=== PATIENT | female | born 1935 | race Caucasian/White ===

== ENCOUNTER 2017-01-23 11:16 | Inpatient (IN) | payer MEDICARE, OTHER ==
--- NOTE | ~2017-01-23 | DS ---
Discharge Summary [place] [address] [place]. [address] NAME: CHRIS MINA : 34 STATUS : DIS IN PAT#: [id number] AGE: 81 ADM/REG DATE : 01/23/17 MR#: [id number] REPORT SERV DATE: 01/27/17 DICTATED BY: WISAM ANGEL DATE: 01/26/17 REPORT STATUS : Draft TRANSCRIBED BY: MODL DATE: 01/26/17 ADMISSION DATE: 01/23/2017 DISCHARGE DATE: 01/26/2017 DISCHARGE DIAGNOSES: 1. Acute systolic heart failure. 2. Acute hypoxic respiratory failure. 3. Rheumatoid arthritis. 4. Chronic kidney disease. 5. Paroxysmal atrial fibrillation. 6. Anemia, on Epogen followed by Dr. Nazario. 7. Hypertension. 8. Non-ST elevation myocardial infarction secondary to hypertension and acute on chronic heart failure. CONSULTATIONS: Dr. Bowman. DISCHARGE MEDICATIONS: Allopurinol 100 mg one tab p.o. b.i.d.; aspirin 325 mg one tab p.o. daily; atorvastatin 80 mg one tab p.o. at bedtime; Coreg 25 mg one tab p.o. b.i.d.; Plavix 75 mg one tab p.o. daily; iron sulfate 325 mg p.o. b.i.d.; folic acid 1 mg p.o. daily; Imdur 30 mg one tab p.o. daily; methotrexate 10 mg one tab p.o. on Wednesdays; Xarelto 15 mg p.o. at bedtime; Entresto one tablet p.o. b.i.d.; hydralazine 25 mg one tab p.o. q.8 hours; prednisone 10 mg b.i.d. up until 02/03/2017, then change back to 10 daily; Tylenol p.r.n. [id number]; Artificial Tears; meclizine 25 mg one tab p.o. q.6 hours p.r.n. vertigo; and Lasix 40 mg one tab p.o. Tuesday. DISCHARGE DISPOSITION: Discharged with Home Health. Follow up with Dr. Bowman and Dr. Lozoya and Home Health for heart failure. Additionally, follow up with Dr. Nazario in one week for CBC and Epogen. PERTINENT LABORATORY DATA: BNP greater than 5000 x 2, troponin 0.23 down to 0.08 at time of discharge. CBC had hematocrit at time of discharge 25.7, on arrival 28.1. HOSPITAL COURSE: Please see H and P for complete details. HISTORY OF PRESENT ILLNESS: Briefly, Ms. Mina is a very pleasant 81-year-old female with past medical history of CKD, paroxysmal atrial fibrillation on rivaroxaban, chronic anemia followed by Dr. Nazario, requiring Epogen replacement, additionally with RA on methotrexate and prednisone who comes in after having acute hypoxic respiratory failure, noted to be in acute systolic heart failure with BNP greater than 5000. The patient was diuresed with good results, optimized on medications including blood pressure medication with addition of hydralazine. Continue aspirin, statin beta becka, currently while inpatient and Entresto. Upon monitoring, the patient did have mild decrease in H and H with hemoglobin as low as 7. Repeat was 7.5. This finding was discussed with Dr. Nazario, the patient's oncologist which appears consistent with the patient's trend as the patient's last Epogen dose was approximately four weeks ago as the patient has been slowly spacing out Discharge Summary [address] [address] NAME: CHRIS MINA : 34 STATUS : DIS IN PAT#: [id number] AGE: 81 ADM/REG DATE : 01/23/17 MR#: [id number] REPORT SERV DATE: 01/27/17 DICTATED BY: WISAM ANGEL DATE: 01/26/17 REPORT STATUS : Draft TRANSCRIBED BY: MODL DATE: 01/26/17 treatments. No transfusions are recommended, and the patient already has followup with Dr. Nazario on 02/04/2017 for re-evaluation and likely Epogen administration as the patient has had good clinical response for this in clinic. These findings were also discussed with patient and son who are at bedside. The patient was initially monitored until noon for blood pressure response to hydralazine to monitor for any symptomatic orthostasis. The patient tolerated medication changes well and will have followups as noted with PCP, Dr. Bowman, and Dr. Nazario. Discharge planning and discussion with the patient, education, and family coordination of care; greater than 30 minutes Thank you for allowing us to assist in the care of this patient. MARYSE/MODL Wisam Angel MD / [id number] CC: MD Jeronimo Orozco III, M.D. Alexander Stratienko, M.D.
--- NOTE | ~2017-01-23 | HP ---
History And Physical [place] [id number] [facility] [place]. [address] NAME: CHRIS CALZADA : 34 STATUS : ADM IN PAT#: [id number] AGE: 81 ADM/REG DATE : 01/23/17 MR#: [id number] REPORT SERV DATE: 01/23/17 DICTATED BY: LISA GARZA DATE: 01/23/17 REPORT STATUS : Draft TRANSCRIBED BY: MODL DATE: 01/23/17 DATE OF ADMISSION: 01/23/2017 REASON FOR ADMISSION: Acute on chronic systolic heart failure exacerbation. CHIEF COMPLAINT: "I started feeling short of breath for the past two days and some chest pressure." HISTORY OF PRESENT ILLNESS: An 81-year-old white female with a history of ischemic cardiomyopathy with an EF of 32% based on a stress test in 2014 and chronic systolic heart failure closely monitored by Dr. Bowman, last seen approximately a month ago. Dr. Bowman had started her on Entresto. She takes Lasix 40 mg every other day. She presented to [facility] ER with complaints of shortness of breath. Denies any cough, fever, chills, nausea, vomiting, or diaphoresis. She complains of shortness of breath for the past 2 days at rest and markedly worse with exertion. She states that she has some orthopnea but it could be due to breathing issues along with back pain issues. She does not wear oxygen at home. She noted about a 2-pound weight gain. She has noticed that she has been increasing her fluid intake but her salt intake remains the same. She has not increased her Lasix dosage as a result of her fluid intake. She says that she has been having some tight chest pressure for the past several days. She was also having an arthritis flare for which her PCP had doubled up on her prednisone to 20 mg once a day. She has been on that for a 5/14 day course. She typically takes 10 mg of prednisone on an as-needed basis. She had been on methotrexate for over 10 years. She was given a dose of Lasix [address] Osborne in the ER and she is feeling better. REVIEW OF SYSTEMS: As per HPI. Otherwise, 10-point systems reviewed and are negative. PAST MEDICAL HISTORY: Coronary artery disease, ischemic cardiomyopathy, chronic systolic heart failure with an EF of around 32% in 2015; biventricular pacemaker; CKD stage 3; PAF on Xarelto; rheumatoid arthritis on chronic methotrexate; and peripheral vascular disease. She has coronary artery disease status post CABG and a left subclavian vein thrombosis. SURGICAL HISTORY: She had a laparoscopic cholecystectomy by Dr. Sommer. SOCIAL HISTORY: She lives at home by herself. She has several children, very good social support. Denies any smoking, drinking, or illegal drug use. FAMILY HISTORY: Mother had coronary artery disease. ALLERGIES: SULFA CAUSING A RASH. MEDICATIONS: Include Tylenol p.r.n.; allopurinol 100 mg twice a day; Artificial Tears; aspirin 325 mg once a day; Lipitor 80 mg at bedtime; Coreg 25 mg twice a day; Plavix 75 mg daily; ferrous sulfate 325 mg twice a day; folic acid 1 mg daily; Lasix 40 mg Tuesday, Tuesday, Tuesday; isosorbide 30 mg daily; meclizine p.r.n.; methotrexate 10 mg every History And Physical [address] [address] NAME: CHRIS CALZADA : 34 STATUS : ADM IN PAT#: [id number] AGE: 81 ADM/REG DATE : 01/23/17 MR#: [id number] REPORT SERV DATE: 01/23/17 DICTATED BY: LISA GARZA DATE: 01/23/17 REPORT STATUS : Draft TRANSCRIBED BY: ALEXANDRIA DATE: 01/23/17Wednesdays; prednisone 20 mg once a day for the next 9 more days, otherwise 10 mg p.r.n.; Xarelto 50 mg at bedtime; and Entresto 1 tab twice a day. PHYSICAL EXAMINATION: VITAL SIGNS: Blood pressure is 161/93, temperature is 97.9, pulse is 81, respirations 19, and saturating 88% on room air. GENERAL: She is no acute distress, very pleasant, accompanied by several family members. HEENT: Normocephalic and atraumatic head. Extraocular muscles intact. Oropharynx is clear. NECK: Supple. Unable to appreciate any JVD. CARDIAC: Irregular rhythm. No murmurs, rubs, or gallops. PULMONARY: Diminished breath sounds with diffuse crackles throughout all lung che. ABDOMEN: Soft, nontender, and nondistended. Positive bowel sounds. EXTREMITIES: Show no clubbing, cyanosis, or edema. SKIN: Warm and dry. PSYCHIATRIC: The patient is cooperative. Mood is appropriate. NEUROLOGIC: No focal deficits. LABORATORY DATA: Show a white blood cell count of 14.4, hemoglobin 9.2, and platelet of 175. INR 2.2. BUN 33, creatinine 1.11. Troponin 0.22. BNP of greater than 5000. Chest x-ray shows bilateral venous congestion. EKG shows a V-paced rhythm. IMPRESSION: 1. Acute hypoxic respiratory failure. 2. Acute on chronic systolic congestive heart failure exacerbation. 3. Chest pressure. 4. Severe rheumatoid arthritis on methotrexate. 5. Ischemic cardiomyopathy with an ejection fraction of 32% on stress test in 2014. 6. Biventricular ICD. 7. CKD stage 3. 8. PAF on Xarelto. 9. Leukocytosis secondary to prednisone. PLAN: Plan is to continue Lasix diuresis. Obtain an echocardiogram to be read by Dr. Bowman. Obtain a CT scan of the chest without contrast to rule out methotrexate-induced pulmonary fibrosis. Obtain 1 more set of troponin 6 hours after the 1st set. Resume her home medications of her oral Lasix. The patient has an overall good prognosis. Anticipate discharging home in two to three days. PONCHO/AL[place]RI[place] Lisa Garza MD / [id number] History And Physical [address] [address] NAME: CHRIS CALZADA : 34 STATUS : ADM IN [facility]#: [id number] AGE: 81 ADM/REG DATE : 01/23/17 MR#: [id number] REPORT SERV DATE: 01/23/17 DICTATED BY: LISA GARZA DATE: 01/23/17 REPORT STATUS : Draft TRANSCRIBED BY: ALEXANDRIA DATE: 01/23/17 CC: Swapnil Alvarez M.D. Alexander Stratienko, M.D.
--- NOTE | ~2017-01-23 | CN ---
Consultation Report [facility] [address] [place]. [address] NAME: CHRIS CALZADA : 34 STATUS : ADM IN PAT#: [id number] AGE: 81 ADM/REG DATE : 01/23/17 MR#: [id number] REPORT SERV DATE: 01/24/17 DICTATED BY: ZAINAB JIMENEZ DATE: 01/24/17 REPORT STATUS : Draft TRANSCRIBED BY: ALEXANDRIA DATE: 01/24/17 CONSULTATION DATE OF CONSULTATION: CHIEF COMPLAINT: Worsening shortness of breath. HISTORY OF PRESENT ILLNESS: 81-year-old woman, known to me from long history of prior care, has long history of coronary artery disease with 04/02 demonstration of multi-vessel coronary disease with subsequent CABG by Dr. Salgado consisting of SALINAS to LAD, SVG to second diagonal, SVG to obtuse marginal, SVG to right posterior descending artery. 03/08, myocardial perfusion scan did not demonstrate jeopardy. The patient also has a relevant history of type 2 diabetes, treated hypertension, treated dyslipidemia, ischemic cardiomyopathy with 02/13 echo estimating LVEF of 20-25%, paroxysmal atrial fibrillation on Xarelto, class 3 kidney disease. She does have biventricular ICD in place. With osteo and rheumatoid arthritis flare within the last week, the patient was given stress doses of steroids. She subsequently developed worsening shortness of breath without chest pain or peripheral edema. She sought evaluation in the emergency room at [facility] last evening. Chest x-ray was consistent with valvular infiltrates and BNP was greater than 5000. PAST MEDICAL HISTORY: 1. CAD-surgical revascularization as defined above. 2. Ischemic cardiomyopathy. 3. SCD prophylaxis-BiV ICD in place. 4. Hypertension. 5. Dyslipidemia. 6. Carotid disease-10/15 duplex with less than 50% bilateral ICA stenoses. 7. CKD-08/12 EGFR 35. 8. Osteo and rheumatoid arthritis. 9. [id number] score of 4 and tolerating Xarelto. 10.Left subclavian vein thrombosis-remote with 04/11 upper extremity venous duplex without evidence of DVT. 11.PVD-05/13 arteriography with left superficial femoral artery diffuse disease with 09/15 RAJANI 0.57. HOME MEDICATIONS: Vitamin D 50,000 units every other week, atorvastatin 80 mg daily, calcitriol 0.25 mcg Tuesday, Tuesday, Tuesday, carvedilol 25 mg b.i.d., methotrexate 10 mg weekly, ferrous sulfate 325 mg twice a day, Lasix 40 mg Tuesday, Tuesday, Tuesday, folic acid 1 mg daily, Tylenol Arthritis Pain 650 mg p.r.n., Xarelto 15 mg daily, Aranesp every 3 weeks, omeprazole 40 mg b.i.d., allopurinol 100 mg b.i.d., vitamin B12 1 mg daily, Plavix 75 mg daily, tramadol 50 mg every six hours p.r.n., Entresto 97/103 b.i.d., isosorbide mononitrate 30 mg daily. Consultation Report [address] [place]. [address] NAME: CHRIS CALZADA : 34 STATUS : ADM IN PAT#: [id number] AGE: 81 ADM/REG DATE : 01/23/17 MR#: [id number] REPORT SERV DATE: 01/24/17 DICTATED BY: ZAINAB JIMENEZ DATE: 01/24/17 REPORT STATUS : Draft TRANSCRIBED BY: ALEXANDRIA DATE: 01/24/17 ALLERGIES: TO SULFA. SOCIAL HISTORY: Does not drink or smoke currently. FAMILY HISTORY: Noncontributory. REVIEW OF SYSTEMS: Osteoarthritis/rheumatoid arthritis flare recently. PHYSICAL EXAMINATION: GENERAL: No acute distress. VITAL SIGNS: 166/72, respirations 16, 97.4, pulse 72 and regular. NECK: 8 cm JVD at 45 degrees. LUNGS: Clear to auscultation. CARDIAC: Laterally displaced PMI, II/ systolic murmur, soft S3. ABDOMEN: Benign. EXTREMITIES: Without edema. LABORATORY DATA: BUN and creatinine 37 and 1.08 yielding EGFR 55. White blood cell count 11,800, hematocrit 27.4%, platelet count 151,000. CK 43. Troponin-I 0.22, 0.23, 0.19. BNP greater than 5000 x2. Telemetry AV paced. EKG probably AV paced at a rate of 77. ASSESSMENT AND PLAN: 1. Mowlg-da-tuzwowy LV systolic failure-precipitated by fluid retentive effects of steroids. IV diuresis has been commenced by hospitalist. Increase isosorbide mononitrate to 60 mg daily. With volume expanded and pain-induced hypertension, adding hydralazine 25 mg q.8 hours. We will continue carvedilol and Entresto. 2. Coronary artery disease-positive troponin as defined above. 3. Mne-UK-tqbclblyf myocardial infarction-likely type 2 myocardial infarction precipitated by stress and volume retentive effects of steroids. Continuing DAPT. Risk stratification may be performed after gnosticism of euvolemia. 4. Carotid disease-stable. Asymptomatic and continues on DAPT. 5. Diabetes mellitus 2-deferred. 6. Peripheral arterial disease-stable. 7. Paroxysmal atrial fibrillation-continuing rivaroxaban 15 mg daily. 8. Chronic kidney disease-now class 3 with EGFR 55. 9. Osteo and rheumatoid arthritis-high dose steroids presently. /MODL Zainab Jimenez M.D. Consultation Report [address] [address] NAME: CHRIS CALZADA : 34 STATUS : ADM IN PAT#: [id number] AGE: 81 ADM/REG DATE : 01/23/17 MR#: [id number] REPORT SERV DATE: 01/24/17 DICTATED BY: ZAINAB JIMENEZ DATE: 01/24/17 REPORT STATUS : Draft TRANSCRIBED BY: MODL DATE: 01/24/17 / [id number] CC: Swapnil Alvarez
[~2017-01-23 11:16] MED LIST: ASAB PO; C1 PO; C5 PO; CIP5 PO; CLINDA150 PO; CORDARONE PO; COREG12 PO; COREG25 PO; DEMA10T PO; DRISDOL50000 UNT PO; DRONED400 PO; FERRETTS325 MG PO; FOLIC PO; IRON325 MG PO; KLOR-CON 1010 MEQ PO; L40 PO; LIPITOR80 MG PO; LISINOPRIL40 MG PO; MTX2.5 PO; P10 PO; PRILOSEC40 MG PO; ROCALTROL0.25 MCG PO; SPIRO25 PO; TREXALL10 MG PO; TYLENOL ARTH650 MG PO; VITAMIN B-12 OTC PO; VITAMIN D OTC PO; VITD PO; XARELTO15 MG PO; Z100 PO; ZESTRIL40 MG PO
[2017-01-23] MEDS ORDERED: Z100 PO (12:20)
[2017-01-23] MEDS ORDERED: LIPITOR80 MG PO (12:20)
[2017-01-23] MEDS ORDERED: IMDUR60 PO (12:20)
[2017-01-23] MEDS ORDERED: PLAVIX PO (12:20)
[2017-01-23] MEDS ORDERED: SACU1TAB4 PO (12:21)
[2017-01-23] MEDS ORDERED: TEARS PLUS OPH (12:21)
[2017-01-23] MEDS ORDERED: FERROUS SULF325 M1 PO (12:21)
[2017-01-23] MEDS ORDERED: FOLIC PO (12:21)
[2017-01-23] MEDS ORDERED: 8 HOUR650 MG PO (12:21)
[2017-01-23 12:22] LABS: BASOPHILS 0.3 %; BASOPHILS ABSOLUTE 0.05 10/3/uL (0.0-0.16); EOSINOPHILS 0.1 %; EOSINOPHILS ABSOLUTE 0.02 10/3/uL (0.0-0.53); IMMATURE GRANULOCYTES 0.2 %; IMMATURE GRANULOCYTES ABSOLUTE 0.03 10/3/uL (0.0-0.11); LYMPHOCYTES 10.1 %; LYMPHOCYTES ABSOLUTE 1.45 10/3/uL (0.67-4.30); MEAN CORPUSCULAR HEMOGLOB 32.4 pg (26.0-34.0); MEAN CORPUSCULAR VOLUME 98.9 fL (80-100); MEAN PLATELET VOLUME 13.2 fL (9.2-13.0); MONOCYTES 5.3 %; MONOCYTES ABSOLUTE 0.77 10/3/uL (0.21-1.20); NEUTROPHILS ABSOLUTE 12.09 10/3/uL (2.02-8.40); RBC DISTRIBUTION WIDTH 17.5 % (12.0-16.0)
[2017-01-23] MEDS ORDERED: TREXALL10 MG PO (12:22)
[2017-01-23 12:23] LABS: ER CBC TAT 0 Hrs 06 MinsNP; HEMATOCRIT 28.1 % (36.0-48.0); HEMOGLOBIN 9.2 g/dL (12.0-16.0); MANUAL DIFF NO %; MEAN CORPUS HGB CONC 32.7 g/dL (32.0-36.0); PLATELET COUNT 175 10/3/uL (150-400); RED CELL COUNT 2.84 10/6/uL (4.0-5.6); WHITE BLOOD CELLS 14.4 10/3/uL (4.5-10.5)
[2017-01-23] MEDS ORDERED: MCZ25 PO (12:23)
[2017-01-23] MEDS ORDERED: P10 PO (12:23)
[2017-01-23] MEDS ORDERED: ASA5GR PO (12:23)
[2017-01-23] MEDS ORDERED: COREG25 PO (12:23)
[2017-01-23] MEDS ORDERED: L40 PO (12:24)
[2017-01-23] MEDS ORDERED: XARELTO15 MG PO (12:24)
[2017-01-23 12:30] LABS: INTERNATIONAL NORMAL RATI 2.2 UNITS (-); PROTIME (NOT ORD) 23.8 SEC (12.0-14.5)
[2017-01-23 12:39] LABS: ALKALINE PHOSPHATASE 66 U/L (45-117); BUN (BLOOD UREA NITROGEN) 33 MG/DL (6-23); CALCIUM, SERUM 8.7 MG/DL (8.5-10.4); CHLORIDE, SERUM 106 MMOL/L (96-112); CO2 (CARBON DIOXIDE) 29 MMOL/L (24-34); CREATININE 1.11 MG/DL (0.55-1.02); GFR AFRICAN AMERICAN 54 ML/MIN (>=60); GFR NON AFRICAN AMERICAN 46 ML/MIN (>=60); GLUCOSE, SERUM 107 MG/DL (60-99); SGPT(ALT) 11 U/L (5-65); TOTAL PROTEIN 6.7 G/DL (6.0-8.5)
[2017-01-23 12:40] LABS: A/G RATIO 1.1 (0.7-1.9); ALBUMIN 3.5 G/DL (3.5-5.0); GLOBULIN 3.2 G/DL (2.5-4.1); SODIUM, SERUM 144 MMOL/L (135-148); TOTAL BILIRUBIN 0.5 MG/DL (0-1.2)
[2017-01-23 12:41] LABS: TROPONIN I 0.22 NG/ML (<0.05)
[2017-01-23 12:42] LABS: POTASSIUM, SERUM 3.5 MMOL/L (3.5-5.3); SGOT(AST) 20 U/L (5-40)
[2017-01-23 18:01] LABS: ULTRASENSITIVE TSH 0.589 MCIU/ML (0.358-3.740)
[2017-01-23 18:31] LABS: CK-MB 0.8 NG/ML; CPK 43 U/L (0-200)
[2017-01-23 21:56] LABS: ASCORBIC ACID (UR NOT ORDER) NEG (NEG); BILIRUBIN, URINE NEGATIVE (NEG); KETONE, URINE NEGATIVE (NEG); LEUKOCYTE ESTERASE(NOT OR MOD (NEG); WBC (NOT ORDERED) (RFLEX) 9 (0-5)
[2017-01-24 02:30] LABS: BASOPHILS 0.1 %; BASOPHILS ABSOLUTE 0.01 10/3/uL (0.0-0.16); EOSINOPHILS 0 %; HEMATOCRIT 27.4 % (36.0-48.0); HEMOGLOBIN 8.8 g/dL (12.0-16.0); IMMATURE GRANULOCYTES 0.8 %; IMMATURE GRANULOCYTES ABSOLUTE 0.09 10/3/uL (0.0-0.11); LYMPHOCYTES 5.4 %; LYMPHOCYTES ABSOLUTE 0.63 10/3/uL (0.67-4.30); MEAN CORPUS HGB CONC 32.1 g/dL (32.0-36.0); MEAN CORPUSCULAR HEMOGLOB 32.2 pg (26.0-34.0); MEAN CORPUSCULAR VOLUME 100.4 fL (80-100); MEAN PLATELET VOLUME 13.7 fL (9.2-13.0); MONOCYTES 3.3 %; MONOCYTES ABSOLUTE 0.39 10/3/uL (0.21-1.20); NEUTROPHILS 90.4 %; NEUTROPHILS ABSOLUTE 10.65 10/3/uL (2.02-8.40); PLATELET COUNT 151 10/3/uL (150-400); RBC DISTRIBUTION WIDTH 17.3 % (12.0-16.0); RED CELL COUNT 2.73 10/6/uL (4.0-5.6); WHITE BLOOD CELLS 11.8 10/3/uL (4.5-10.5)
[2017-01-24 02:31] LABS: MANUAL DIFF NO %
[2017-01-24 02:48] LABS: CHLORIDE, SERUM 105 MMOL/L (96-112); CO2 (CARBON DIOXIDE) 33 MMOL/L (24-34); CREATININE 1.08 MG/DL (0.55-1.02); GFR AFRICAN AMERICAN 55 ML/MIN (>=60); GFR NON AFRICAN AMERICAN 48 ML/MIN (>=60); POTASSIUM, SERUM 3.3 MMOL/L (3.5-5.3); SODIUM, SERUM 148 MMOL/L (135-148)
[2017-01-24 02:51] LABS: BUN (BLOOD UREA NITROGEN) 37 MG/DL (6-23); GLUCOSE, SERUM 141 MG/DL (60-99); TROPONIN I 0.19 NG/ML (<0.05)
[2017-01-24 12:13] LABS: POTASSIUM, SERUM 3.9 MMOL/L (3.5-5.3)
[2017-01-24 12:14] LABS: TROPONIN I 0.1 NG/ML (<0.05)
[2017-01-25 05:11] LABS: BASOPHILS 0 %; EOSINOPHILS 0 %; HEMATOCRIT 25.7 % (36.0-48.0); HEMOGLOBIN 8.4 g/dL (12.0-16.0); IMMATURE GRANULOCYTES 0.4 %; IMMATURE GRANULOCYTES ABSOLUTE 0.04 10/3/uL (0.0-0.11); LYMPHOCYTES 7.9 %; LYMPHOCYTES ABSOLUTE 0.71 10/3/uL (0.67-4.30); MEAN CORPUS HGB CONC 32.7 g/dL (32.0-36.0); MEAN CORPUSCULAR HEMOGLOB 32.9 pg (26.0-34.0); MEAN CORPUSCULAR VOLUME 100.8 fL (80-100); MEAN PLATELET VOLUME 13.8 fL (9.2-13.0); MONOCYTES 5.2 %; MONOCYTES ABSOLUTE 0.47 10/3/uL (0.21-1.20); NEUTROPHILS 86.5 %; NEUTROPHILS ABSOLUTE 7.76 10/3/uL (2.02-8.40); NUCLEATED RED BLOOD CELLS 0.2 /100WBC (0-0); PLATELET COUNT 144 10/3/uL (150-400); RBC DISTRIBUTION WIDTH 17.5 % (12.0-16.0); RED CELL COUNT 2.55 10/6/uL (4.0-5.6)
[2017-01-25 05:12] LABS: MANUAL DIFF NO %
[2017-01-25 05:18] LABS: CALCIUM, SERUM 8.9 MG/DL (8.5-10.4); CHLORIDE, SERUM 104 MMOL/L (96-112); CO2 (CARBON DIOXIDE) 29 MMOL/L (24-34); CREATININE 1.22 MG/DL (0.55-1.02); GFR AFRICAN AMERICAN 48 ML/MIN (>=60); GFR NON AFRICAN AMERICAN 41 ML/MIN (>=60); GLUCOSE, SERUM 138 MG/DL (60-99); POTASSIUM, SERUM 3.7 MMOL/L (3.5-5.3); SODIUM, SERUM 144 MMOL/L (135-148)
[2017-01-25 05:30] LABS: BUN (BLOOD UREA NITROGEN) 52 MG/DL (6-23)
[2017-01-25 05:39] LABS: ANISOCYTOSIS 1+ (5-10/OIF) (0-5/OIF); MACROCYTES 1+ (5-10/OIF) (0-5/OIF); OVALOCYTES 1+ (3-10/OIF) (0-2/OIF); PLATELET ESTIMATE ADQ (ADEQUATE)
[2017-01-26 05:17] LABS: BASOPHILS 0.1 %; BASOPHILS ABSOLUTE 0.01 10/3/uL (0.0-0.16); EOSINOPHILS 0 %; IMMATURE GRANULOCYTES 0.5 %; IMMATURE GRANULOCYTES ABSOLUTE 0.05 10/3/uL (0.0-0.11); LYMPHOCYTES ABSOLUTE 1.06 10/3/uL (0.67-4.30); MEAN CORPUS HGB CONC 32.9 g/dL (32.0-36.0); MEAN CORPUSCULAR HEMOGLOB 33.3 pg (26.0-34.0); MEAN CORPUSCULAR VOLUME 101.4 fL (80-100); MEAN PLATELET VOLUME 13.2 fL (9.2-13.0); MONOCYTES 5.4 %; MONOCYTES ABSOLUTE 0.52 10/3/uL (0.21-1.20); NEUTROPHILS ABSOLUTE 8.01 10/3/uL (2.02-8.40); PLATELET COUNT 134 10/3/uL (150-400); RBC DISTRIBUTION WIDTH 18.4 % (12.0-16.0); RED CELL COUNT 2.07 10/6/uL (4.0-5.6); WHITE BLOOD CELLS 9.7 10/3/uL (4.5-10.5)
[2017-01-26 05:21] LABS: MANUAL DIFF NO %
[2017-01-26 05:30] LABS: BUN (BLOOD UREA NITROGEN) 79 MG/DL (6-23); CALCIUM, SERUM 8.7 MG/DL (8.5-10.4); CHLORIDE, SERUM 106 MMOL/L (96-112); CO2 (CARBON DIOXIDE) 28 MMOL/L (24-34); CREATININE 1.25 MG/DL (0.55-1.02); GFR AFRICAN AMERICAN 46 ML/MIN (>=60); GFR NON AFRICAN AMERICAN 40 ML/MIN (>=60); GLUCOSE, SERUM 133 MG/DL (60-99); POTASSIUM, SERUM 3.9 MMOL/L (3.5-5.3); SODIUM, SERUM 143 MMOL/L (135-148)
[2017-01-26 09:51] LABS: HEMOGLOBIN 7.5 g/dL (12.0-16.0)
[2017-01-26 09:53] LABS: HEMATOCRIT 23.9 % (36.0-48.0)
[2017-01-26] MEDS ORDERED: P10 PO (14:18)
[2017-01-26] MEDS ORDERED: APRES25 PO (14:19)
[2017-07-04] MEDS ORDERED: VITAMIN B-121000 MC1 SL (11:38)
[2017-07-04] MEDS ORDERED: DOCUSOFT S100 MG PO (11:39)
[2017-07-04] MEDS ORDERED: XYZAL5 MG PO (11:41)
[2017-07-04] MEDS ORDERED: MCZ25 PO (11:42)
[2017-07-04] MEDS ORDERED: ULTRAM50 PO (11:43)
[2017-07-04] MEDS ORDERED: VELTASSA PO (11:45)
[2017-07-04] MEDS ORDERED: VITD PO (11:46)
== END 2017-01-26 15:41 | disposition home health service (06) | DRG 280 ==
LOC: ER 11:16 → 5NO 13:53
PROVIDERS: Emergency Medicine; Internal Medicine; Student in an Organized Health Care Education/Training Program
DX: I13.0 Hypertensive heart and chronic kidney disease with heart failure and stage 1 through stage 4 chronic kidney disease, or unspecified chronic kidney disease (principal); I50.23 Acute on chronic systolic (congestive) heart failure; I21.4 Non-ST elevation (NSTEMI) myocardial infarction; J96.01 Acute respiratory failure with hypoxia; N18.3 Chronic kidney disease, stage 3 (moderate); I25.10 Atherosclerotic heart disease of native coronary artery without angina pectoris; Z95.1 Presence of aortocoronary bypass graft; E11.22 Type 2 diabetes mellitus with diabetic chronic kidney disease; E78.5 Hyperlipidemia, unspecified; I48.0 Paroxysmal atrial fibrillation; Z95.810 Presence of automatic (implantable) cardiac defibrillator; M06.9 Rheumatoid arthritis, unspecified; Z79.52 Long term (current) use of systemic steroids; D64.9 Anemia, unspecified; Z88.2 Allergy status to sulfonamides
CPT/HCPCS: 71010; 71250; 80048; 80053; 81001; 82550; 82553; 83735; 83880; 84132; 84443; 84484; 85014; 85018; 85025; 85610; 87086; 93005; 96374; 99285; A9270-GY; C8929; J1940; J8610; Q9957

== ENCOUNTER 2017-01-28 13:15 | Inpatient (IN) | payer MEDICARE, OTHER ==
--- NOTE | ~2017-01-28 | HP ---
History And Physical [place] [id number] [facility] [place]. [address] NAME: CHRIS MINA : 34 STATUS : ADM IN [facility]#: [id number] AGE: 81 ADM/REG DATE : 01/28/17 MR#: [id number] REPORT SERV DATE: 01/28/17 DICTATED BY: REBECCA MENDOZA DATE: 01/28/17 REPORT STATUS : Draft TRANSCRIBED BY: MODL DATE: 01/28/17 DATE OF ADMISSION: 01/28/2017 HISTORY OF PRESENT ILLNESS: Ms. Chris Mina is an 81-year-old female patient who was recently discharged from the hospital on 01/26/2017 and was brought back by granddaughter as she was feeling extremely tired, weak, and drowsy. Granddaughter states that this is not like herself and her grandmother has never been so tired and drowsy before. Granddaughter also states that she found her grandmother slightly confused also. She brought her into the hospital because of this severe weakness and "sleeping" all the time. I examined the patient at bedside and the patient herself was able to give me history, and at this time, she seems to be quite alert and somewhat oriented. She is able to list even her medications right now. She states that she does feel extremely weak and her shortness of breath is at baseline. She states that she is not able to do much activity any ways because of a weak heart. However, she denies any chest pain, cough, fever, headaches, or blurry vision. She denies any dyspnea at rest. She denies any nausea, vomiting, abdominal pain, diarrhea, or dysuria. She does complain of black stool. She states that her stools are always dark because she takes iron pills. So, she did not notice any significant difference. The patient denies any significant joint pains. REVIEW OF SYSTEMS: Negative for all other systems other than as above. PAST MEDICAL HISTORY: Significant for the following : 1. Chronic systolic heart failure with an ejection fraction of 27% on recent echocardiogram. 2. Coronary artery disease, status post coronary artery bypass graft. 3. Chronic atrial fibrillation, status post pacer placement and the patient is on Xarelto for this. 4. Chronic kidney disease, stage III with baseline creatinine around 1.3. 5. Rheumatoid arthritis. 6. Chronic anemia, on Epogen followed by Dr. Nazario. The patient probably has anemia of chronic disease from rheumatoid arthritis itself. 7. Hypertension. 8. Recent iwj-HK-zzqktnf elevation myocardial infarction and the patient's envelope sealer is Dr. Bowman. The patient was recently discharged from the hospital on 01/26/2017 as mentioned above. MEDICATIONS: Her home medications include the following allopurinol 100 mg one p.o. b.i.d., aspirin 325 mg once a day, atorvastatin 80 mg once a day, Coreg 25 mg p.o. b.i.d., Plavix 75 mg once a day, iron sulfate 325 mg p.o. b.i.d., folic acid 1 mg p.o. daily, Imdur 30 mg p.o. daily, methotrexate 10 mg one p.o. on Wednesdays, Xarelto 15 mg p.o. daily, Entresto one tablet p.o. b.i.d., hydralazine 25 mg p.o. q.8 hours, prednisone 10 mg p.o. b.i.d., and Tylenol p.r.n. The patient is also on Lasix 40 mg one tablet on Tuesday, Tuesday, and History And Physical [address] [address] NAME: CHRIS MINA : 34 STATUS : ADM IN [facility]#: [id number] AGE: 81 ADM/REG DATE : 01/28/17 MR#: [id number] REPORT SERV DATE: 01/28/17 DICTATED BY: REBECCA MENDOAZ DATE: 01/28/17 REPORT STATUS : Draft TRANSCRIBED BY: MODL DATE: 01/28/17Tuesday. The patient actually was discharged with home health when she was recently discharged also. FAMILY HISTORY: Family history is positive for coronary artery disease in mother. ALLERGIES: HER ALLERGIES INCLUDE ALLERGIC TO SULFA. SOCIAL HISTORY: The patient does not smoke or drink or do any illicits. She lives by herself and is very independent according to granddaughter. PHYSICAL EXAMINATION: GENERAL: On examination, the patient is alert, awake, oriented, and her skin and mucous membranes appear a little dry. VITAL SIGNS: Her vital signs show that her blood pressure is 134/69 and pulse is anywhere from 70 to 80 per minute and irregular. The patient has a pacemaker. O2 saturations 97% on 2 liters of oxygen. The patient is afebrile. HEENT: Unremarkable. NECK: There is mild JVD. CARDIOVASCULAR SYSTEM: S1 and S2 appreciated. Irregular rhythm noted. The patient has a pacemaker in place, but I could not appreciate any significant murmurs, rubs, or gallops. RESPIRATORY SYSTEM: Very clear. I could not appreciate any rales or rhonchi. ABDOMEN: Soft, nontender, and obese. No organomegaly noted. Bowel sounds are appreciated. EXTREMITIES: There is no pedal edema. Pedal pulses are well felt. NEUROLOGIC: No deficits at this time. MUSCULOSKELETAL: No acute pain or swelling in any of the major joints, but the patient does have rheumatoid arthritis for which she takes methotrexate and prednisone. NEUROLOGIC: Normal. As above. PSYCHIATRIC: Normal. LABORATORY DATA: 1. Labs that I have for this patient from today include a CBC that shows a WBC count of 7.5, hemoglobin is 5.8, hematocrit is 18.1, and platelet count is 158. 2. INR is 2.1. I am not sure why INR was ordered because this patient is not on Coumadin, but is on Xarelto. 3. Comprehensive metabolic profile shows sodium of 143, potassium of 3.5, BUN is 81, and creatinine is 1.5. Troponin I is slightly elevated at 0.06, likely demand related because of the severe anemia. 4. LFTs are normal at this time. 5. Urinalysis is normal with no evidence of UTI, but there is some blood in it. Again, probably because the patient is on aspirin, Plavix, and Xarelto at the same time. 6. Portable chest x-ray shows cardiomegaly, previous CABG, and a pacemaker in place, but no acute infiltrates. ASSESSMENT: In this patient is: 1. Acute gastrointestinal bleed - this could be from diverticulosis/even upper gastrointestinal source is possible. The patient currently is on three medications History And Physical [address] [address] NAME: CHRIS MINA : 34 STATUS : ADM IN [facility]#: [id number] AGE: 81 ADM/REG DATE : 01/28/17 MR#: [id number] REPORT SERV DATE: 01/28/17 DICTATED BY: REBECCA MENDOZA DATE: 01/28/17 REPORT STATUS : Draft TRANSCRIBED BY: MODL DATE: 01/28/17 that can worsen gastrointestinal bleed and these include aspirin, Plavix, and Xarelto. At this time, we will hold all three medications. The risks of taking these medications at this time have been explained to the patient and granddaughter. Hence, these medications are being held and the patient is being transfused with two units of PRBCs. We will also give her 20 mg of Lasix in between transfusions and start her on IV Ringer's lactate at 75 mL an hour. We will obtain two large bore IVs and obtain H and H every eight hours, we will consult GI. The patient has had a colonoscopy one to two years ago and this showed a benign polyp. The patient has also had EGD in the past and this has shown esophagitis and gastritis according to the patient and granddaughter. 2. Chronic systolic heart failure with an ejection fraction of 27%. We will continue all her home medications except aspirin, Plavix, and Xarelto. We will continue Entresto. 3. Coronary artery disease. 4. Chronic atrial fibrillation, status post pacer. 5. For all the above problems, we will consult Cardiology, Dr. Bowman, as per family request. 6. Chronic kidney disease. The patient has acute kidney injury with further elevations in BUN and creatinine, and this is probably because of ongoing gastrointestinal bleed. The IV Ringer's lactate should help this. 7. All other chronic problems are stable at this time. We will watch this patient closely for worsening of her gastrointestinal bleed and we will admit her to [address] [place] [address] at this time. RRA/MODL Rebecca Mendoza M.D. / [id number] CC: MD COURTNEY Orozco ANDREW D
--- NOTE | ~2017-01-28 | HP ---
History And Physical [place] [address] [place] [address] NAME: CHRIS CALZADA : 34 STATUS : ADM IN PAT#: [id number] AGE: 81 ADM/REG DATE : 01/28/17 MR#: [id number] REPORT SERV DATE: 01/28/17 DICTATED BY: REBECCA MENDOZA DATE: 01/28/17 REPORT STATUS : Draft TRANSCRIBED BY: MODL DATE: 01/28/17 DATE OF ADMISSION: 01/28/2017 ADDENDUM: It is to be noted that the patient was stool Hemoccult positive per rectal exam and also has visibly black stool in the ER today on 01/28/2017. LULU/ALEX[place] Reebcca Mendoza M.D. / [id number] CC: MD COURTNEY Orozco ANDREW D
--- NOTE | ~2017-01-28 | EGD ---
EGD REPORT [facility] [address] [place] [address] NAME: CHRIS MINA : 34 STATUS : ADM IN PAT#: [id number] AGE: 81 ADM/REG DATE : 01/28/17 MR#: [id number] REPORT SERV DATE: 01/31/17 DICTATED BY: MARCELLUS MONTEZ DATE: 01/31/17 REPORT STATUS : Draft [facility]: [facility] DATE: 01/31/17 [facility] Patient Name: Chris Mina Date of : 1935 Attending MD: MARCELLUS MONTEZ MD Procedure Date No Time: 01/31/2017 Procedure: Colonoscopy Indications: Iron deficiency anemia Medicines: Propofol total dose 220 mg IV Complications: No immediate complications. Procedure: Pre-Anesthesia Assessment: - ASA Grade Assessment: IV - A patient with severe systemic disease that is a constant threat to life. After I obtained informed consent, the scope was passed under direct vision. Throughout the procedure, the patient's blood pressure, pulse, and oxygen saturations were monitored continuously. The PCF [id number] was introduced through the anus and advanced to the cecum, identified by the appendiceal orifice, IC valve and transillumination. The patient tolerated the procedure well. The quality of the bowel preparation was good. Findings: The rectum, sigmoid colon, descending colon, splenic flexure, transverse colon, hepatic flexure, ascending colon, cecum, appendiceal orifice and ileocecal valve appeared normal. Multiple small-mouthed diverticula were found in the descending colon. Non-bleeding internal hemorrhoids were found, and they were Grade II (internal hemorrhoids that prolapse but reduce spontaneously). Impression: - The rectum, sigmoid colon, descending colon, splenic flexure, transverse colon, hepatic flexure, ascending colon, cecum, at the appendiceal orifice and ileocecal valve are normal. - Diverticulosis in the descending colon. - Non-bleeding internal hemorrhoids. Recommendation: - Return patient to [facility] for ongoing care. - Regular diet daily. - Continue present medications. Procedure Code(s): --- Professional --- 17294, Colonoscopy, flexible, proximal to splenic flexure; diagnostic, with or without collection of specimen(s) by brushing or washing, with or without EGD REPORT [address] [address] NAME: CHRIS MINA : 34 STATUS : ADM IN [facility]#: [id number] AGE: 81 ADM/REG DATE : 01/28/17 MR#: [id number] REPORT SERV DATE: 01/31/17 DICTATED BY: MARCELLUS MONTEZ DATE: 01/31/17 REPORT STATUS : Draft TRANSCRIBED BY: [employer] DATE: 01/31/17 colon decompression (separate procedure) Diagnosis Code(s): --- Professional --- K64.1, Second degree hemorrhoids K57.30, Diverticulosis of large intestine without perforation or abscess without bleeding D50.9, Iron deficiency anemia, unspecified CPT copyright 2013 [employer]. All rights reserved. The codes documented in this report are preliminary and upon botany laboratory assistant review may be revised to meet current compliance requirements. Marcellus Montez MD MARCELLUS MONTEZ MD 01/31/2017 12:40 PM This report has been signed electronically. Number of Addenda: 0 Note Initiated On: 01/31/2017 11:43 AM Scope Withdrawal Time 0 hours 6 minutes 14 seconds [id number] [id number]
--- NOTE | ~2017-01-28 | EGD ---
EGD REPORT [facility] [address] [place] [address] NAME: CHRIS MINA : 34 STATUS : ADM IN PAT#: [id number] AGE: 81 ADM/REG DATE : 01/28/17 MR#: [id number] REPORT SERV DATE: 01/31/17 DICTATED BY: MARCELLUS MONTEZ DATE: 01/31/17 REPORT STATUS : Draft [facility]ANSCRIBED [facility]: [facility] DATE: 01/31/17 [facility] Patient Name: Chris Mina Date of : 1935 Attending MD: MARCELLUS MONTEZ MD Procedure Date No Time: 01/31/2017 Procedure: Upper GI endoscopy Indications: Iron deficiency anemia Medicines: Propofol total dose 220 mg IV Complications: No immediate complications. Procedure: Pre-Anesthesia Assessment: - ASA Grade Assessment: IV - A patient with severe systemic disease that is a constant threat to life. After obtaining informed consent, the endoscope was passed under direct vision. Throughout the procedure, the patient's blood pressure, pulse, and oxygen saturations were monitored continuously. The GIF H190 [id number] was introduced through the mouth, and advanced to the third part of duodenum. The patient tolerated the procedure well. Findings: The ampulla, duodenal bulb, first part of the duodenum and 2nd part of the duodenum were normal. Three 9 mm semi-sessile polyps with bleeding and stigmata of recent bleeding were found in the gastric antrum. The polyp was removed with a hot snare.One Large Polyp and 3 smaller polyps with Erosion biopsed and the Larger One Removed with Snare Resection was complete, and retrieval was complete. The smaller polyps with Erosion was biopsied with a cold forceps for histology. Scattered moderate inflammation characterized by erythema was found in the gastric body and in the gastric antrum. Biopsy with a cold forceps was performed for histology. The cardia and gastric fundus were normal. A small hiatus hernia was present. The cricopharyngeus, upper third of the esophagus, middle third of the esophagus and lower third of the esophagus were normal. Impression: - Normal ampulla, duodenal bulb, first part of the duodenum and 2nd part of the duodenum. - Three gastric polyps with Erosion on top biopsed The larger Polyp resected and retrieved. Biopsied. - Gastritis. Biopsied. - Normal cardia and gastric fundus. - Hiatus hernia. EGD REPORT [address] [address] NAME: CHRIS MINA : 34 STATUS : ADM IN [facility]#: [id number] AGE: 81 ADM/REG DATE : 01/28/17 MR#: [id number] REPORT SERV DATE: 01/31/17 DICTATED BY: MARCELLUS MONTEZ DATE: 01/31/17 REPORT STATUS : Draft TRANSCRIBED BY: [employer] DATE: 01/31/17 - Normal cricopharyngeus, upper third of esophagus, middle third of esophagus and lower third of esophagus. Recommendation: - Return patient to hospital [facility] for ongoing care. - Regular diet daily. Follow biopsy Depending on Pathology may have to resect the other polyps at a later date Procedure Code(s): --- Professional --- 53621, Esophagogastroduodenoscopy, flexible, transoral; with removal of tumor(s), polyp(s), or other lesion(s) by snare technique Diagnosis Code(s): --- Professional --- K31.7, Polyp of stomach and duodenum K29.70, Gastritis, unspecified, without bleeding K44.9, Diaphragmatic hernia without obstruction or gangrene D50.9, Iron deficiency anemia, unspecified CPT copyright 2013 [employer]. All rights reserved. The codes documented in this report are preliminary and upon physician coder review may be revised to meet current compliance requirements. Marcellus Montez MD MARCELLUS MONTEZ MD 01/31/2017 12:48 PM This report has been signed electronically. Number of Addenda: 0 Note Initiated On: 01/31/2017 12:01 PM Scope Withdrawal Time 0 hours 0 minutes 0 seconds [id number] [id number]
--- NOTE | ~2017-01-28 | CN ---
Consultation Report [facility] [address] [place]. [address] NAME: CHRIS MINA : 34 STATUS : ADM IN PAT#: [id number] AGE: 81 ADM/REG DATE : 01/28/17 MR#: [id number] REPORT SERV DATE: 01/29/17 DICTATED BY: MARCELLUS MONTEZ DATE: 01/29/17 REPORT STATUS : Draft TRANSCRIBED BY: MODL DATE: 01/29/17 CONSULTATION. DATE OF CONSULTATION: 01/29/2017 HISTORY OF PRESENT ILLNESS: Ms. Mina is a pleasant lady, who is 81 years old, recently discharged from this hospital on 01/26/2017 with a history of acute systolic heart failure, acute hypoxic respiratory failure, rheumatoid arthritis, chronic kidney disease, and paroxysmal atrial fibrillation. She was also having severe anemia and was on treatment by Dr. Nazario with Epogen. She also has a history of hypertension, non-ST elevation myocardial infarction secondary to hypertension and acute on chronic heart failure. She came with complaints of having severe weakness for the past three days with black tarry stools and a drop in her systolic pressure and weakness, and was found to have heme-positive stools and hence been admitted. Still has some weakness and severe anemia. She has been transfused with one unit of blood, currently feels better. Has been off the anticoagulants like aspirin, Plavix, and Xarelto and does feel a little bit better. Has no shortness of breath. No palpitation or chest pain. No throwing up of blood. Has some black tarry stools. PAST MEDICAL HISTORY: Significant for diabetes mellitus, hypertension, dyslipidemia, coronary artery disease status post multiple coronary artery bypass graft by Dr. Salgado in 2002. Multiple cardiac caths, has an ejection fraction of about 30%. Has carotid artery stenosis and stenosis of multiple vessels in her legs for which she has had cardiac cath. Angiograms done. Has atrial fibrillation and has recently had a pacemaker. She also has congestive cardiac failure, carotid artery stenosis, rheumatoid arthritis, and anemia. CURRENT MEDICATIONS: Vitamin D 50,000 units one capsule every week; atorvastatin 80 mg per day; calcitriol 0.25 mcg capsule per day; carvedilol 25 mg per day; methotrexate 2.5 mg four tablets once a week; ferrous sulfate 325 mg one tab twice a day; furosemide 40 mg on Tuesday, Tuesday, and Tuesday; folic acid 1 mg daily; Tylenol one tablet a day; Xarelto 15 mg daily; Aranesp every three weeks; omeprazole 40 mg per day; allopurinol 100 mg one tablet twice daily; vitamin B12 1000 mcg one tab daily; Plavix 75 mg one tablet once a day; tramadol 50 mg one tablet every 6 hours; Entresto one tablet twice daily; potassium chloride 20 mEq per day; Prilosec 20 mg per day; lisinopril 40 mg per day. SOCIAL HISTORY: She does not smoke any cigarettes. Does not take any alcohol. She is a nonsmoker, lives with the family. ALLERGIES: SULFA. REVIEW OF SYSTEMS: 10-point review of system did not reveal anything except the weakness of the extremities and some black tarry stools. PHYSICAL EXAMINATION: Consultation Report [address] [place]. [address] NAME: CHRIS MINA : 34 STATUS : ADM IN [facility]#: [id number] AGE: 81 ADM/REG DATE : 01/28/17 MR#: [id number] REPORT SERV DATE: 01/29/17 DICTATED BY: MARCELLUS MONTEZ DATE: 01/29/17 REPORT STATUS : Draft TRANSCRIBED BY: [place] DATE: 01/29/17 VITAL SIGNS: Her temperature is normal. NECK: Supple. Trachea is central. Carotids are well felt on both sides. CARDIOVASCULAR: S1 and S2 are heard. There is no S3. ABDOMEN: Soft. Bowel sounds are heard. Hernial orifices are normal. LABS: Show a sodium of 147, potassium is 3.3, BUN and creatinine are 56 and 1.41, magnesium is 2.2, calcium is 8.3, glucose is 115. Liver profile is normal. Has a hemoglobin of 7.4, hematocrit is 22.4, platelet count is 21.2. I scoped her about two years ago and found to have some gastritis of the stomach and had one or two benign polyps. IMPRESSION: Severe anemia with probable acute gastrointestinal bleed. PLAN: 1. We will give her 2 units of PRBC. Follow her hemoglobin and hematocrit and try to keep the hemoglobin about 8 with a hematocrit of 24. Give her IV fluids. 2. Acute kidney insufficiency. We will give her IV fluids to bring down the BUN and creatinine. We would also put her on a Protonix drip 40 mg IV q.12 hours. We will plan to scope her on Tuesday if Dr. Bowman agrees. Thank you for the consult. Follow the patient with you. [place]LIT[place] Marcellus Montez M.D. / [id number] CC: MD Darell Orozco Andrew D
--- NOTE | ~2017-01-28 | DS ---
Discharge Summary [facility] [address] [place]. [address] NAME: CHRIS CALZADA : 34 STATUS : DIS IN PAT#: [id number] AGE: 81 ADM/REG DATE : 01/28/17 MR#: [id number] REPORT SERV DATE: 02/03/17 DICTATED BY: LISA MUNOZ DATE: 02/02/17 REPORT STATUS : Draft TRANSCRIBED BY: MODL DATE: 02/02/17 ADMISSION DATE: 01/28/2017 DISCHARGE DATE: 02/02/2017 REASON FOR ADMISSION: Acute blood loss anemia and melena. HISTORY OF PRESENT ILLNESS: Please refer to Dr. Sanna Jensen's history and physical dated 01/28/2017 for complete details regarding the patient's admission. The patient was readmitted to the Hospitalist Service for her melena and acute loss anemia. HOSPITAL COURSE: The patient was just discharged from our service on 01/26/2017 for an acute on chronic systolic heart failure exacerbation. She was readmitted with melena two days later and acute blood loss anemia. She presented with a hemoglobin of around 5. She was transfused a total of 4 units of packed red blood cells. Dr. Burns with GI Medicine was consulted. Please note that the patient was on Xarelto, prednisone 20 mg once a day, and Plavix prior to admission. These medications were held. Dr. Burns performed an EGD, which showed three gastric polyps with erosion on the top. Biopsied the larger polyp, resected, and retrieved. There was gastritis. There was scattered moderate inflammation characterized by erythema found in the gastric body and in the gastric antrum. He also performed a colonoscopy, which showed diverticulosis in the descending colon and nonbleeding internal hemorrhoids. Her hemoglobin had been stable after her 4 units of packed red blood cells. On the day of discharge, her hemoglobin is around 9.9. Dr. Bowman was consulted, recommended restarting Xarelto after hemoglobin had been stable, but to hold off Plavix until seen by him in a week or two. She denies any abdominal pain, shortness of breath, or chest pain on the day of discharge. She is having normal-colored bowel movements. She has been accepted to [facility] for physical therapy. She will be discharged there in stable condition. DISCHARGE DIAGNOSES: Hyperkalemia, now resolved; acute blood loss anemia, status post 4 units of packed red blood cells; gastric erosions with three polyps on EGD; diverticulosis; severe rheumatoid arthritis, on p.r.n. prednisone; chronic systolic heart failure with an EF of around 27%; compensated paroxysmal atrial fibrillation, on Xarelto, rate controlled; hypertension; and hyperlipidemia. PROCEDURES: Include consultations by Dr. Burns and Dr. Bowman, EGD, colonoscopy, transfusion of 4 units packed red blood cells. MEDICATIONS: Include allopurinol 100 mg twice a day, Lipitor 80 mg at bedtime, carvedilol 25 mg twice a day, folic acid 1 mg daily, Lasix 40 mg daily, Imdur 60 mg daily, Protonix 40 mg once a day, Xarelto 15 mg at bedtime, Entresto one tab twice a day, hydralazine 25 mg every eight hours, Tylenol p.r.n., artificial tears p.r.n., Antivert p.r.n., ferrous sulfate 325 mg twice a day, methotrexate 10 mg every Tuesday. She has been asked to hold her aspirin and take prednisone on a p.r.n. basis and to hold Plavix until seen by Dr. Bowman. Spending over 30 minutes in discharge planning and coordination of care. Discharge Summary [address] [address] NAME: CHRIS CALZADA : 34 STATUS : DIS IN PAT#: [id number] AGE: 81 ADM/REG DATE : 01/28/17 MR#: [id number] REPORT SERV DATE: 02/03/17 DICTATED BY: LISA MUNOZ DATE: 02/02/17 REPORT STATUS : Draft TRANSCRIBED BY: [employer] DATE: 02/02/17 [place] Lisa Munoz MD / [id number] CC: MD ELIJAH Horn M.D.
[~2017-01-28 13:15] MED LIST changes: +8 HOUR650 MG PO; +APRES25 PO; +ASA5GR PO; +FERROUS SULF325 M1 PO; +IMDUR60 PO; +MCZ25 PO; +PLAVIX PO; +SACU1TAB4 PO; +TEARS PLUS OPH
[2017-01-28 13:21] LABS: BASOPHILS 0.1 %; BASOPHILS ABSOLUTE 0.01 10/3/uL (0.0-0.16); EOSINOPHILS 0.8 %; EOSINOPHILS ABSOLUTE 0.06 10/3/uL (0.0-0.53); ER CBC TAT 0 Hrs 07 Mins; IMMATURE GRANULOCYTES 0.3 %; MEAN CORPUSCULAR HEMOGLOB 33.1 pg (26.0-34.0); MEAN CORPUSCULAR VOLUME 103.4 fL (80-100); MONOCYTES 6.7 %; NEUTROPHILS 80.1 %; NEUTROPHILS ABSOLUTE 5.99 10/3/uL (2.02-8.40); PLATELET COUNT 158 10/3/uL (150-400); RBC DISTRIBUTION WIDTH 19.9 % (12.0-16.0); RED CELL COUNT 1.75 10/6/uL (4.0-5.6); WHITE BLOOD CELLS 7.5 10/3/uL (4.5-10.5)
[2017-01-28 13:24] LABS: HEMATOCRIT 18.1 % (36.0-48.0); HEMOGLOBIN 5.8 g/dL (12.0-16.0); IMMATURE GRANULOCYTES ABSOLUTE 0.02 10/3/uL (0.0-0.11); MANUAL DIFF NO %
[2017-01-28 13:27] LABS: ASCORBIC ACID (UR NOT ORDER) NEG (NEG); BILIRUBIN, URINE NEGATIVE (NEG); ER URINALYSIS TAT 0 Hrs 13 Mins; KETONE, URINE NEGATIVE (NEG); LEUKOCYTE ESTERASE(NOT OR NEG (NEG); NITRITE (URINE) NEG (NEG); WBC (NOT ORDERED) (RFLEX) 3 (0-5)
[2017-01-28 13:30] LABS: INTERNATIONAL NORMAL RATI 2.1 UNITS (-); PARTIAL THROMBO TIME 28.6 SEC (22.5-37.2)
[2017-01-28 13:42] LABS: A/G RATIO 1.3 (0.7-1.9); ALBUMIN 3.6 G/DL (3.5-5.0); ALKALINE PHOSPHATASE 55 U/L (45-117); BUN (BLOOD UREA NITROGEN) 81 MG/DL (6-23); CALCIUM, SERUM 8.4 MG/DL (8.5-10.4); CHLORIDE, SERUM 107 MMOL/L (96-112); CO2 (CARBON DIOXIDE) 26 MMOL/L (24-34); CREATININE 1.59 MG/DL (0.55-1.02); GFR AFRICAN AMERICAN 35 ML/MIN (>=60); GFR NON AFRICAN AMERICAN 30 ML/MIN (>=60); GLOBULIN 2.7 G/DL (2.5-4.1); GLUCOSE, SERUM 124 MG/DL (60-99); POTASSIUM, SERUM 3.5 MMOL/L (3.5-5.3); SGOT(AST) 14 U/L (5-40); SGPT(ALT) 11 U/L (5-65); SODIUM, SERUM 143 MMOL/L (135-148); TOTAL BILIRUBIN 0.9 MG/DL (0-1.2); TOTAL PROTEIN 6.3 G/DL (6.0-8.5); TROPONIN I 0.06 NG/ML (<0.05)
[2017-01-28 13:48] LABS: ANISOCYTOSIS 1+ (5-10/OIF) (0-5/OIF); ER DIFF TAT 0 Hrs 34 Mins; LYMPHOCYTES 18 %; LYMPHOCYTES ABSOLUTE (CALC) 1.35 10/3/uL (0.67-4.30); MACROCYTES 1+ (5-10/OIF) (0-5/OIF); MONOCYTES 2 %; MONOCYTES ABSOLUTE (CALC) 0.15 10/3/uL (0.21-1.20); PLATELET ESTIMATE ADQ (ADEQUATE); SEGMENTED NEUTROPHIL (0) 80 %; TOTAL NUCLEATED CELLS 100
[2017-01-28 17:34] LABS: HEMATOCRIT 16.4 % (36.0-48.0); HEMOGLOBIN 5.1 g/dL (12.0-16.0)
[2017-01-29 05:44] LABS: BASOPHILS 0.2 %; BASOPHILS ABSOLUTE 0.02 10/3/uL (0.0-0.16); EOSINOPHILS 1.4 %; EOSINOPHILS ABSOLUTE 0.11 10/3/uL (0.0-0.53); IMMATURE GRANULOCYTES 0.2 %; IMMATURE GRANULOCYTES ABSOLUTE 0.02 10/3/uL (0.0-0.11); LYMPHOCYTES 12.5 %; MEAN CORPUS HGB CONC 32.7 g/dL (32.0-36.0); MEAN CORPUSCULAR HEMOGLOB 31.1 pg (26.0-34.0); MEAN PLATELET VOLUME 13.5 fL (9.2-13.0); MONOCYTES 6.2 %; NEUTROPHILS 79.5 %; NEUTROPHILS ABSOLUTE 6.38 10/3/uL (2.02-8.40); PLATELET COUNT 128 10/3/uL (150-400); RBC DISTRIBUTION WIDTH 21.2 % (12.0-16.0)
[2017-01-29 05:47] LABS: HEMATOCRIT 25.1 % (36.0-48.0); HEMOGLOBIN 8.2 g/dL (12.0-16.0); MANUAL DIFF NO %; MEAN CORPUSCULAR VOLUME 95.1 fL (80-100); RED CELL COUNT 2.64 10/6/uL (4.0-5.6)
[2017-01-29 05:52] LABS: CALCIUM, SERUM 8.3 MG/DL (8.5-10.4); CHLORIDE, SERUM 111 MMOL/L (96-112); CO2 (CARBON DIOXIDE) 26 MMOL/L (24-34); CREATININE 1.41 MG/DL (0.55-1.02); GFR AFRICAN AMERICAN 40 ML/MIN (>=60); GFR NON AFRICAN AMERICAN 35 ML/MIN (>=60); GLUCOSE, SERUM 115 MG/DL (60-99); POTASSIUM, SERUM 3.3 MMOL/L (3.5-5.3); SODIUM, SERUM 147 MMOL/L (135-148)
[2017-01-29 06:05] LABS: BUN (BLOOD UREA NITROGEN) 56 MG/DL (6-23)
[2017-01-29 09:31] LABS: HEMOGLOBIN 7.4 g/dL (12.0-16.0)
[2017-01-29 09:32] LABS: HEMATOCRIT 22.4 % (36.0-48.0)
[2017-01-29 11:26] LABS: HEMOGLOBIN 7.5 g/dL (12.0-16.0)
[2017-01-29 19:46] LABS: HEMATOCRIT 29.6 % (36.0-48.0); HEMOGLOBIN 9.8 g/dL (12.0-16.0)
[2017-01-30 06:14] LABS: BASOPHILS 0.2 %; BASOPHILS ABSOLUTE 0.02 10/3/uL (0.0-0.16); EOSINOPHILS 2.7 %; EOSINOPHILS ABSOLUTE 0.23 10/3/uL (0.0-0.53); HEMATOCRIT 31.6 % (36.0-48.0); HEMOGLOBIN 10.3 g/dL (12.0-16.0); IMMATURE GRANULOCYTES 0.5 %; IMMATURE GRANULOCYTES ABSOLUTE 0.04 10/3/uL (0.0-0.11); LYMPHOCYTES 13.8 %; LYMPHOCYTES ABSOLUTE 1.19 10/3/uL (0.67-4.30); MEAN CORPUS HGB CONC 32.6 g/dL (32.0-36.0); MEAN CORPUSCULAR HEMOGLOB 29.2 pg (26.0-34.0); MONOCYTES 8.3 %; MONOCYTES ABSOLUTE 0.72 10/3/uL (0.21-1.20); NEUTROPHILS 74.5 %; NEUTROPHILS ABSOLUTE 6.45 10/3/uL (2.02-8.40); NUCLEATED RED BLOOD CELLS 0.3 /100WBC (0-0); PLATELET COUNT 101 10/3/uL (150-400); RBC DISTRIBUTION WIDTH 22.7 % (12.0-16.0); WHITE BLOOD CELLS 8.7 10/3/uL (4.5-10.5)
[2017-01-30 06:15] LABS: MANUAL DIFF NO %; MEAN CORPUSCULAR VOLUME 89.5 fL (80-100); RED CELL COUNT 3.53 10/6/uL (4.0-5.6)
[2017-01-30 06:23] LABS: A/G RATIO 1.2 (0.7-1.9); ALKALINE PHOSPHATASE 57 U/L (45-117); CHLORIDE, SERUM 109 MMOL/L (96-112); CO2 (CARBON DIOXIDE) 28 MMOL/L (24-34); CREATININE 1.41 MG/DL (0.55-1.02); GFR AFRICAN AMERICAN 40 ML/MIN (>=60); GFR NON AFRICAN AMERICAN 35 ML/MIN (>=60); GLOBULIN 2.5 G/DL (2.5-4.1); GLUCOSE, SERUM 106 MG/DL (60-99); SGOT(AST) 12 U/L (5-40); SGPT(ALT) 8 U/L (5-65); SODIUM, SERUM 146 MMOL/L (135-148); TOTAL PROTEIN 5.5 G/DL (6.0-8.5)
[2017-01-30 06:24] LABS: BUN (BLOOD UREA NITROGEN) 36 MG/DL (6-23); CALCIUM, SERUM 8.3 MG/DL (8.5-10.4); POTASSIUM, SERUM 3.5 MMOL/L (3.5-5.3)
[2017-01-30 06:25] LABS: TOTAL BILIRUBIN 2.5 MG/DL (0-1.2)
[2017-01-30 07:41] LABS: POLYCHROMASIA 1+ (2-5/OIF) (0-1/OIF)
[2017-01-30 07:42] LABS: MACROCYTES 1+ (5-10/OIF) (0-5/OIF); MICROCYTES 1+ (5-10/OIF) (0-5/OIF); PLATELET ESTIMATE SLT DEC (ADEQUATE); TEARDROP SHAPED RBCS OCC (0-2/OIF)
[2017-01-30 10:49] LABS: HEMATOCRIT 33.1 % (36.0-48.0); HEMOGLOBIN 11.2 g/dL (12.0-16.0)
[2017-01-30 19:08] LABS: HEMATOCRIT 33.6 % (36.0-48.0); HEMOGLOBIN 11.2 g/dL (12.0-16.0)
[2017-01-31 04:59] LABS: HEMATOCRIT 31.8 % (36.0-48.0); HEMOGLOBIN 10.6 g/dL (12.0-16.0)
[2017-01-31 05:47] LABS: BASOPHILS 0.1 %; BASOPHILS ABSOLUTE 0.01 10/3/uL (0.0-0.16); EOSINOPHILS 2.8 %; EOSINOPHILS ABSOLUTE 0.24 10/3/uL (0.0-0.53); HEMATOCRIT 29.6 % (36.0-48.0); IMMATURE GRANULOCYTES 0.5 %; IMMATURE GRANULOCYTES ABSOLUTE 0.04 10/3/uL (0.0-0.11); LYMPHOCYTES 12.4 %; LYMPHOCYTES ABSOLUTE 1.06 10/3/uL (0.67-4.30); MEAN CORPUS HGB CONC 33.8 g/dL (32.0-36.0); MEAN CORPUSCULAR HEMOGLOB 29.9 pg (26.0-34.0); MEAN CORPUSCULAR VOLUME 88.4 fL (80-100); MEAN PLATELET VOLUME 12.8 fL (9.2-13.0); MONOCYTES 7.2 %; MONOCYTES ABSOLUTE 0.62 10/3/uL (0.21-1.20); NEUTROPHILS ABSOLUTE 6.61 10/3/uL (2.02-8.40); PLATELET COUNT 114 10/3/uL (150-400); RBC DISTRIBUTION WIDTH 22.6 % (12.0-16.0); RED CELL COUNT 3.35 10/6/uL (4.0-5.6); WHITE BLOOD CELLS 8.6 10/3/uL (4.5-10.5)
[2017-01-31 05:50] LABS: CALCIUM, SERUM 8.2 MG/DL (8.5-10.4); CHLORIDE, SERUM 106 MMOL/L (96-112); CO2 (CARBON DIOXIDE) 26 MMOL/L (24-34); CREATININE 1.29 MG/DL (0.55-1.02); GFR AFRICAN AMERICAN 45 ML/MIN (>=60); GFR NON AFRICAN AMERICAN 39 ML/MIN (>=60); GLUCOSE, SERUM 93 MG/DL (60-99); POTASSIUM, SERUM 3.4 MMOL/L (3.5-5.3); SODIUM, SERUM 144 MMOL/L (135-148)
[2017-01-31 05:53] LABS: MANUAL DIFF NO %
[2017-01-31 05:54] LABS: BUN (BLOOD UREA NITROGEN) 24 MG/DL (6-23)
[2017-01-31 06:04] LABS: INTERNATIONAL NORMAL RATI 1.2 UNITS (-); PARTIAL THROMBO TIME 26.3 SEC (22.5-37.2)
[2017-01-31 06:53] LABS: PLATELET ESTIMATE DEC (ADEQUATE)
[2017-02-01 05:42] LABS: CALCIUM, SERUM 7.9 MG/DL (8.5-10.4); CHLORIDE, SERUM 108 MMOL/L (96-112); CO2 (CARBON DIOXIDE) 24 MMOL/L (24-34); CREATININE 1.34 MG/DL (0.55-1.02); GFR AFRICAN AMERICAN 43 ML/MIN (>=60); GFR NON AFRICAN AMERICAN 37 ML/MIN (>=60); GLUCOSE, SERUM 99 MG/DL (60-99); SODIUM, SERUM 140 MMOL/L (135-148)
[2017-02-01 05:46] LABS: BUN (BLOOD UREA NITROGEN) 18 MG/DL (6-23); POTASSIUM, SERUM 5.8 MMOL/L (3.5-5.3)
[2017-02-01 06:31] LABS: BASOPHILS 0.1 %; BASOPHILS ABSOLUTE 0.01 10/3/uL (0.0-0.16); EOSINOPHILS 3.4 %; EOSINOPHILS ABSOLUTE 0.26 10/3/uL (0.0-0.53); HEMATOCRIT 29.2 % (36.0-48.0); HEMOGLOBIN 9.7 g/dL (12.0-16.0); IMMATURE GRANULOCYTES 0.4 %; IMMATURE GRANULOCYTES ABSOLUTE 0.03 10/3/uL (0.0-0.11); LYMPHOCYTES 10.7 %; LYMPHOCYTES ABSOLUTE 0.83 10/3/uL (0.67-4.30); MANUAL DIFF NO %; MEAN CORPUS HGB CONC 33.2 g/dL (32.0-36.0); MEAN CORPUSCULAR HEMOGLOB 30.4 pg (26.0-34.0); MEAN CORPUSCULAR VOLUME 91.5 fL (80-100); MONOCYTES 7.7 %; NEUTROPHILS 77.7 %; NEUTROPHILS ABSOLUTE 6.02 10/3/uL (2.02-8.40); PLATELET COUNT 101 10/3/uL (150-400); RED CELL COUNT 3.19 10/6/uL (4.0-5.6); WHITE BLOOD CELLS 7.8 10/3/uL (4.5-10.5)
[2017-02-01 07:07] LABS: PLATELET ESTIMATE SLT DEC (ADEQUATE)
[2017-02-01 07:08] LABS: POLYCHROMASIA 1+ (2-5/OIF) (0-1/OIF)
[2017-02-02 07:04] LABS: BASOPHILS 0.3 %; BASOPHILS ABSOLUTE 0.02 10/3/uL (0.0-0.16); EOSINOPHILS 3.8 %; EOSINOPHILS ABSOLUTE 0.26 10/3/uL (0.0-0.53); HEMATOCRIT 30.7 % (36.0-48.0); HEMOGLOBIN 9.9 g/dL (12.0-16.0); IMMATURE GRANULOCYTES 0.3 %; IMMATURE GRANULOCYTES ABSOLUTE 0.02 10/3/uL (0.0-0.11); LYMPHOCYTES 13.3 %; LYMPHOCYTES ABSOLUTE 0.91 10/3/uL (0.67-4.30); MEAN CORPUS HGB CONC 32.2 g/dL (32.0-36.0); MEAN CORPUSCULAR HEMOGLOB 30.1 pg (26.0-34.0); MEAN CORPUSCULAR VOLUME 93.3 fL (80-100); MEAN PLATELET VOLUME 13.7 fL (9.2-13.0); MONOCYTES 7.6 %; MONOCYTES ABSOLUTE 0.52 10/3/uL (0.21-1.20); NEUTROPHILS 74.7 %; NEUTROPHILS ABSOLUTE 5.09 10/3/uL (2.02-8.40); PLATELET COUNT 110 10/3/uL (150-400); RBC DISTRIBUTION WIDTH 21.7 % (12.0-16.0); RED CELL COUNT 3.29 10/6/uL (4.0-5.6); WHITE BLOOD CELLS 6.8 10/3/uL (4.5-10.5)
[2017-02-02 07:08] LABS: MANUAL DIFF NO %
[2017-02-02 07:14] LABS: BUN (BLOOD UREA NITROGEN) 18 MG/DL (6-23); CALCIUM, SERUM 8.3 MG/DL (8.5-10.4); CHLORIDE, SERUM 108 MMOL/L (96-112); CO2 (CARBON DIOXIDE) 26 MMOL/L (24-34); CREATININE 1.37 MG/DL (0.55-1.02); GFR AFRICAN AMERICAN 42 ML/MIN (>=60); GFR NON AFRICAN AMERICAN 36 ML/MIN (>=60); GLUCOSE, SERUM 114 MG/DL (60-99); POTASSIUM, SERUM 3.3 MMOL/L (3.5-5.3); SODIUM, SERUM 143 MMOL/L (135-148)
[2017-02-02 07:27] LABS: ANISOCYTOSIS 1+ (5-10/OIF) (0-5/OIF); PLATELET ESTIMATE SLT DEC (ADEQUATE)
[2017-07-04] MEDS ORDERED: VITAMIN B-121000 MC1 SL (11:38)
[2017-07-04] MEDS ORDERED: DOCUSOFT S100 MG PO (11:39)
[2017-07-04] MEDS ORDERED: XYZAL5 MG PO (11:41)
[2017-07-04] MEDS ORDERED: MCZ25 PO (11:42)
[2017-07-04] MEDS ORDERED: ULTRAM50 PO (11:43)
[2017-07-04] MEDS ORDERED: VELTASSA PO (11:45)
[2017-07-04] MEDS ORDERED: VITD PO (11:46)
== END 2017-02-02 12:15 | disposition home health service (06) | DRG 378 ==
LOC: ER 13:15 → 7NO 15:15
PROVIDERS: Emergency Medicine; Internal Medicine; Internal Medicine Gastroenterology; Student in an Organized Health Care Education/Training Program
PROC: 0DJD8ZZ Inspection of Lower Intestinal Tract, Via Natural or Artificial Opening Endoscopic (ICD-10-PCS; principal; 2017-01-31 12:09)
PROC: 0DB68ZZ Excision of Stomach, Via Natural or Artificial Opening Endoscopic (ICD-10-PCS; 2017-01-31 12:09)
DX: K92.2 Gastrointestinal hemorrhage, unspecified (principal); I50.22 Chronic systolic (congestive) heart failure; N17.9 Acute kidney failure, unspecified; E87.5 Hyperkalemia; I13.0 Hypertensive heart and chronic kidney disease with heart failure and stage 1 through stage 4 chronic kidney disease, or unspecified chronic kidney disease; D62 Acute posthemorrhagic anemia; I48.2 Chronic atrial fibrillation; I25.10 Atherosclerotic heart disease of native coronary artery without angina pectoris; Z95.1 Presence of aortocoronary bypass graft; K31.7 Polyp of stomach and duodenum; K44.9 Diaphragmatic hernia without obstruction or gangrene; M06.9 Rheumatoid arthritis, unspecified; Z88.2 Allergy status to sulfonamides; N18.3 Chronic kidney disease, stage 3 (moderate)
CPT/HCPCS: 36415; 36430; 71010; 80048; 80053; 81001; 83735; 84132; 84484; 85014; 85018; 85025; 85610; 85730; 86850; 86900; 86901; 86920; 87040; 88305; 88342; 93005; 97161-GP; 99285; A9270-GY; C9113; G8978-CK-GP; G8979-CJ-GP; J1940; J2370; P9016